=== PATIENT | female | born 1945 | race Caucasian/White ===

== ENCOUNTER → 2018-03-26 | Outpatient (CLI) | payer OTHER | LOC: M.RAD 13:44 | DX: Z12.31 Encounter for screening mammogram for malignant neoplasm of breast (principal); C50.411 Malignant neoplasm of upper-outer quadrant of right female breast; Z17.0 Estrogen receptor positive status [ER+]; Z78.0 Asymptomatic menopausal state; Z15.01 Genetic susceptibility to malignant neoplasm of breast; Z15.09 Genetic susceptibility to other malignant neoplasm ==

== ENCOUNTER 2019-03-01 16:55 | Inpatient (IN) | payer OTHER ==
[~2019-03-01] VITALS: Ht 167.6 cm; Wt 58.5 kg
[2019-03-01 16:58] VITALS: BP 142/67
[2019-03-01] MEDS ORDERED: NOLVADEX10 MG PO (17:07)
[2019-03-01] MEDS ORDERED: VITAMINC500 PO (17:08)
[2019-03-01] MEDS ORDERED: TUMERIC (17:08)
[2019-03-01] MEDS ORDERED: VITAMIN D1000 UNIT PO (17:09)
[2019-03-01] MEDS ORDERED: VENTOLIN HFA 1818 GM INH (17:23)
[2019-03-01 17:51] LABS: ABSOLUTE EOSINOPHILS 0.2 thou/uL (0.0-0.7); ABSOLUTE LYMPHOCYTES 1.3 thou/uL (0.8-5.3); ABSOLUTE MONOCYTES 0.8 thou/uL (0.0-1.2); ABSOLUTE NEUTROPHILS 5.4 thou/uL (1.6-8.1); BASOPHILS 0.3 %; EOSINOPHILS 2.5 %; HEMATOCRIT 41.6 % (37.0-47.0); LYMPHOCYTES 16.6 %; MCH 29.9 pg (26.0-34.0); MCHC 33.7 g/dL (28.0-37.0); MCV 88.7 fL (80.0-100.0); MONOCYTES 10.5 %; MPV 6.8 fl. (7.2-11.1); NUCLEATED RBCS 0 /100WBC; PLATELET COUNT* 237 thou/uL (150-400); POLYS 70.1 %; RBC 4.69 mil/uL (4.20-5.00); RDW-CV 14.8 % (10.5-14.5); WBC 7.7 thou/uL (4.0-11.0)
[2019-03-01 17:55] LABS: BE 0.5 mmol/L (-2 to +3); PCO2 41.4 mmHg (35.0-45.0); PO2 72.6 mmHg (75.0-100.0); pH 7.404 (7.340-7.450)
[2019-03-01 18:00] LABS: ANION GAP 7 mmol/L (7-16); BUN 11 mg/dL (7-18); CALCIUM 8.8 mg/dL (8.5-10.1); CHLORIDE 101 mmol/L (98-107); CO2 30 mmol/L (21-32); GLUCOSE 102 mg/dL (70-99); POTASSIUM 4.1 mmol/L (3.5-5.1); SODIUM 138 mmol/L (136-145)
[2019-03-01 18:03] LABS: INR 0.9; PROTIME 9.7 Seconds (9.20-11.50)
[2019-03-01 18:13] LABS: ALBUMIN 3.4 g/dL (3.4-5.0); ALKALINE PHOSPHATASE 64 U/L (46-116); NT-PRO BRAIN NAT PEPTIDE 157 pg/mL (<300); SGOT 12 U/L (15-37); SGPT 19 U/L (30-65); TOTAL BILIRUBIN 0.4 mg/dL (<0.1-1.0); TOTAL PROTEIN 7.2 g/dL (6.4-8.2); TROPONIN-I LEVEL <0.06 ng/mL (<0.06)
[2019-03-01 19:36] LABS: URINE BILIRUBIN NEGATIVE (Negative); URINE BLOOD TRACE (Negative); URINE CLARITY CLEAR; URINE COLOR STRAW; URINE GLUCOSE-RANDOM NEGATIVE (Negative); URINE KETONES TRACE (Negative); URINE LEUKOCYTES-REFLEX NEGATIVE (Negative); URINE NITRITE-REFLEX NEGATIVE (Negative); URINE PROTEIN NEGATIVE (Negative); URINE SPECIFIC GRAVITY <= 1.005 (1.005-1.030); URINE UROBILINOGEN 0.2 E.U./dl (0.2-1.0)
[2019-03-01 22:00] VITALS: BP 129/43
[2019-03-01 22:32] VITALS: BP 155/49
[2019-03-02 01:02] LABS: ABSOLUTE EOSINOPHILS 0.1 thou/uL (0.0-0.7); ABSOLUTE LYMPHOCYTES 1.2 thou/uL (0.8-5.3); ABSOLUTE MONOCYTES 0.8 thou/uL (0.0-1.2); ABSOLUTE NEUTROPHILS 6.4 thou/uL (1.6-8.1); BASOPHILS 0.2 %; EOSINOPHILS 1.5 %; HEMATOCRIT 39.2 % (37.0-47.0); HEMOGLOBIN 13.1 gm/dL (12.0-15.0); LYMPHOCYTES 14.3 %; MCH 29.5 pg (26.0-34.0); MCHC 33.3 g/dL (28.0-37.0); MCV 88.4 fL (80.0-100.0); MONOCYTES 9.7 %; MPV 7.3 fl. (7.2-11.1); NUCLEATED RBCS 0 /100WBC; PLATELET COUNT* 222 thou/uL (150-400); POLYS 74.3 %; RBC 4.43 mil/uL (4.20-5.00); RDW-CV 14.4 % (10.5-14.5); WBC 8.7 thou/uL (4.0-11.0)
[2019-03-02 01:30] LABS: CALCIUM 8.8 mg/dL (8.5-10.1); CREATININE 0.6 mg/dL (0.6-1.3); MAGNESIUM 1.7 mg/dL (1.8-2.4)
--- NOTE | 2019-03-02 01:49 | NUR ---
TRANSFER FROM ED RECIEVED REPORT AND ASSUMED CARE AT 1900. PARALEGAL IN PLACE. DISTOLIC BP SOFT, OTHER THAN THAT VITAL SIGNS STABLE. PT IS UP ADLIB. PT DENIES ANY PAIN AT THIS TIME. ASSESSMENT COMPLETED DISCUSSED PLAN OF CARE AND PT UNDERSTANDS. BED LOCKED AND CALL LIGHT WITHIN REACH. FALL PRECAUTIONS IN PLACE. HOURLY ROUNDING DONE AND ALL NEEDS MET. NURSING WILL CONTINUE TO MONITOR.
[2019-03-02 04:00] VITALS: BP 142/49
[2019-03-02 08:00] VITALS: BP 130/69
--- NOTE | 2019-03-02 08:00 | NUR ---
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 LS COARSE WITH WHEEZING UPON INHALATION AND RHONCHI UPON EXHALATION, PT DYSPNEIC WITH EXERTION. WILL CONT POC.
--- NOTE | 2019-03-02 11:39 | EKG ---
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
--- NOTE | 2019-03-02 11:40 | EKG ---
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
[2019-03-02 12:07] VITALS: BP 142/49
[2019-03-02 16:28] VITALS: BP 122/73
--- NOTE | 2019-03-02 17:31 | NUR ---
UP AD BRITT, VSS, REMAINS ON O2 3LPM VIA NC, DYSPNEIC WITH EXERTION. LOOSE COUGH WITH CLEAR SPUTUM. HOURLY ROUNDING COMPLETED, ASSESSMENT NOTED.
[2019-03-02 19:45] VITALS: BP 120/46
[2019-03-03 00:14] VITALS: BP 128/53
--- NOTE | 2019-03-03 05:09 | NUR ---
RECEIVED REPORT AND ASSUMED CARE AT 1900. VSS. CARDIAC MONITORING IN PLACE. PT DENIES COMPLIANTS OF PAIN. ASSESSMENT COMPLETED CHARTED. DISCUSSED PLAN OF CARE WITH PT, VERBALIZED UNDERSTANDING. PT UP AD BRITT IN ROOM, ON 2.5L NC. BED LOCKED IN LOWEST POSITION, CALL LIGHT WITHIN REACH. HOURLY ROUNDING COMPLETED AND ALL NEEDS MET.
[2019-03-03 08:00] VITALS: BP 133/55
--- NOTE | 2019-03-03 08:30 | NUR ---
RECEIVED REPORT AND ASSUMED CARE OF PT AT 0735.PT IS A/OX4.TRACING SR WITH SOME PACS.ON 4 L NC.IV PATENT AND SALINE LOCKED.RT LIMB ALERT .COUGH PRESENT WITH WEEZY LUNGS SOUNDS.NO COMPLAINTS OF CHEST PAIN.SOME SCARS PRESENTS ON SKINS.CATH SCAN COMPLETED TODAY.CALL LIGHT AND FALL PRECAUTIONS IN PLACE.WILL CONTINUE TO MONITOR.
[2019-03-03 12:00] VITALS: BP 139/50
--- NOTE | 2019-03-03 13:09 | NUR ---
Pt is A&O. Resides at home alone. Active and independent. Pt has a home neb, no other DME. No hx of HH or SNF. Supportive family and friends. Pt states that she may need home o2 at in, CM following for disposition needs.
[2019-03-03 16:00] VITALS: BP 118/46
--- NOTE | 2019-03-03 17:22 | NUR ---
VSS.TRACING SR ON THE MONITOR.ON 4 L NC.CATH SCAN COMPLETED AND NO EVEDIENCE OF PE NOTICED.REPORT INFORMED TO PT.UP AD BRITT.NO COMPLAINTS OF PAIN.COUGH PRESENT WITH MEDIUM AMOUNT OF THICK SPUTUM.WEEZY LUNGS SOUNDS. ON BREATHING TREATMENT PER ORDER.CALL LIGHT AND FALL PRECAUTIONS IN PLACE.WILL CONTINUE TO MONITOR.
--- NOTE | 2019-03-03 18:57 | NUR ---
PT WAS NOTIFIED THAT NO ALBUTEROL "RESCUE INHALER" WOULD BE ORDERED. SHE WAS ADVISED TO NO LONGER USE ANY HOME INHALERS WHILE IN HOSPITAL THIS IS AGAINST HOSPITAL POLICY AND A DRS ORDER IS REQUIRED. DR VIDALES WAS CONTACTED WELL PHARMACY AND RT. PT WAS ADVISED IF SHE NEEDS PRN BREATHING TX, TO ALERT NURSING STAFF. PT NOT HAPPY ABOUT DECISION BUT STATES SHE WILL COMPLY.
[2019-03-03 19:50] VITALS: BP 127/41
[2019-03-04 00:45] VITALS: BP 127/52
[2019-03-04 05:39] LABS: ABSOLUTE LYMPHOCYTES 0.7 thou/uL (0.8-5.3); ABSOLUTE MONOCYTES 0.2 thou/uL (0.0-1.2); ABSOLUTE NEUTROPHILS 5.1 thou/uL (1.6-8.1); BASOPHILS 0.1 %; HEMATOCRIT 36.7 % (37.0-47.0); HEMOGLOBIN 12.4 gm/dL (12.0-15.0); LYMPHOCYTES 11.2 %; MCH 29.3 pg (26.0-34.0); MCHC 33.7 g/dL (28.0-37.0); MCV 87.1 fL (80.0-100.0); MONOCYTES 3.7 %; MPV 7.4 fl. (7.2-11.1); NUCLEATED RBCS 0 /100WBC; PLATELET COUNT* 229 thou/uL (150-400); RBC 4.21 mil/uL (4.20-5.00); RDW-CV 14.1 % (10.5-14.5)
--- NOTE | 2019-03-04 05:49 | NUR ---
RECEIVED REPORT AND ASSUMED CARE AT 1900. VSS. CARDIAC MONITORING IN PLACE. PT DENOES COMPLAINTS OF PAIN. ASSESSMENT COMPLETED CHARTED. PT REFUSING LOVENOX INJ, EDUCATED ON DVT PREVENTION. PT REFUSING SCD'S. PT INFORMED NURSING THAT SHE WILL BE LEAVING 03/04/19 IN THE EVENING, EVEN IF NOT DISCHARGED BY PHYSICIAN.PT TOOK A SHOWER THIS EVENING. UP AD BRITT IN ROOM. BED LOCKED IN LOWEST POSITION, CALL LIGHT WITHIN REACH. HOURLY ROUNDING COMPLETED AND ALL NEEDS MET.
[2019-03-04 05:56] LABS: CALCIUM 8.8 mg/dL (8.5-10.1); CREATININE 0.5 mg/dL (0.6-1.3); POTASSIUM 4.2 mmol/L (3.5-5.1)
[2019-03-04 11:03] VITALS: BP 127/52
[2019-03-04] MEDS ORDERED: CEFDINIR300 MG PO (11:14)
[2019-03-04] MEDS ORDERED: PROTONIX40 M1 PO (11:15)
[2019-03-04] MEDS ORDERED: IPRAT-ALBUT 0.5-3 ML INH (11:19)
[2019-03-04 11:30] VITALS: BP 113/42
--- NOTE | 2019-03-04 11:31 | NUR ---
RECEIVED REPORT AND ASSUMED CARE OF PT .PT IS A/OX4.SR ON THE MONITOR.ON 4 L NC.PT LOOKS REALLY IRRITATED.SHE WANTS TO GO HOME.UP AD BRITT.REST AND EXERCISE COMPLETED .PT DONT NEED TO ON HOME 02 PER RT.DISCHARGE ORDER RECEIVED.PT OK TO DISCHARGE.ALL DISCHARGE PAPER WORK COMPLETED.I AND HEART MONITOR TAKEN OUT AND RETURNED TO STATION.PT WAITING FOR HER RIDE .
== END 2019-03-04 12:10 | disposition home or self-care (01) | DRG 189 ==
LOC: M.ERS 16:55 → M.2W 19:41 → M.TBA-ER 19:41 → M.2W 20:30
PROVIDERS: Internal Medicine; Nurse Practitioner Family; ADMIT Family Medicine
DX: J96.01 Acute respiratory failure with hypoxia (principal); J44.1 Chronic obstructive pulmonary disease with (acute) exacerbation; J44.0 Chronic obstructive pulmonary disease with (acute) lower respiratory infection; N17.9 Acute kidney failure, unspecified; R07.89 Other chest pain; E83.42 Hypomagnesemia; J20.9 Acute bronchitis, unspecified; F17.210 Nicotine dependence, cigarettes, uncomplicated; Z90.710 Acquired absence of both cervix and uterus; Z85.3 Personal history of malignant neoplasm of breast; Z88.2 Allergy status to sulfonamides; Z88.8 Allergy status to other drugs, medicaments and biological substances

== ENCOUNTER → 2019-11-06 | Outpatient (CLI) | payer OTHER ==
[~2019-11-06] MED LIST: CEFDINIR300 MG PO; IPRAT-ALBUT 0.5-3 ML INH; NOLVADEX10 MG PO; PROTONIX40 M1 PO; TUMERIC; VENTOLIN HFA 1818 GM INH; VITAMIN D1000 UNIT PO; VITAMINC500 PO
[2019-11-06 13:05] LABS: CREATININE 0.7 mg/dL (0.6-1.3)
== END ==
LOC: M.MRI 10-29 14:30 → M.LAB 11-04 10:30 → M.MRI 11-04 11:30 → M.LAB 12:30
PROVIDERS: Internal Medicine Hematology & Oncology
DX: C50.411 Malignant neoplasm of upper-outer quadrant of right female breast (principal); Z98.890 Other specified postprocedural states

== ENCOUNTER → 2019-11-17 | Outpatient (CLI) | payer OTHER | LOC: M.RAD 15:48 | DX: M51.37 Other intervertebral disc degeneration, lumbosacral region (principal); M48.07 Spinal stenosis, lumbosacral region; M47.817 Spondylosis without myelopathy or radiculopathy, lumbosacral region; M25.78 Osteophyte, vertebrae ==

== ENCOUNTER → 2021-03-28 | Outpatient (CLI) | payer OTHER ==
[2021-03-28 13:17] LABS: CREATININE 0.7 mg/dL (0.6-1.3)
== END ==
LOC: M.RAD 12-21 11:50 → M.MRI 01-25 11:30 → M.RAD 01-25 13:30 → M.MRI 01-25 13:30 → M.LAB 03-01 10:30 → M.RAD 03-01 11:00 → M.MRI 03-01 11:30 → M.LAB 03-22 10:30
PROVIDERS: ATTEND Internal Medicine Hematology & Oncology
DX: C50.411 Malignant neoplasm of upper-outer quadrant of right female breast (principal); M81.0 Age-related osteoporosis without current pathological fracture; Z15.01 Genetic susceptibility to malignant neoplasm of breast; Z15.09 Genetic susceptibility to other malignant neoplasm; M85.88 Other specified disorders of bone density and structure, other site